=== PATIENT | male | born 1995 | race Caucasian/White ===

== ENCOUNTER 2017-12-07 15:54 | Emergency (ER) | payer OTHER ==
[~2017-12-07] VITALS: Ht 167.6 cm; Wt 63.5 kg
[2017-12-07 15:57] VITALS: BP 134/82
--- NOTE | 2017-12-07 18:12 | ED HAND/WRIST INJURY COMPLAINT ---
History of Present Illness General Chief Complaint: Laceration Procedure Stated Complaint: LAC TO L THUMB Source: patient Exam Limitations: no limitations Vital Signs & Intake/Output Vital Signs & Intake/Output Vital Signs Date Time Temp Pulse Resp B/P B/P Pulse O2 O2 Flow FiO2 Mean Ox Delivery Rate 12/07 1557 96.0 46 15 134/82 94 Room Air Room Air Allergies Coded Allergies: No Known Allergies (12/07/17) Reconcile Medications No Known Home Medications Triage Note: PT TO ED FOR C/C OF LAC TO LEFT THUMB S/P GETTING CUT WITH KNIFE. UNSURE OF LAST TETANUS SHOT. BLEEDING CONTROLLED IN TRIAGE. DRESSING PLACED AND ICE PACK PROVIDED. Triage Nurses Notes Reviewed? yes Occurred: just prior to arrival Duration: hour(s):, constant, continues in ED Timing: recent history Injury Environment: home Severity: moderate, severe Pain/Injury Location: Left: 1st finger. Method of Injury: laceration (1 CM) No Modifying Factors: none HPI: 22-year-old male comes into the emergency room with laceration to left thumb. Patient cut it at home. He denies any numbness or tingling. Some associated bleeding. He comes in for further evaluation. Sharp throbbing pain. (Walter Gonsalez) Past History Travel History Traveled to [place] past 21 day No Medical History Any Pertinent Medical History? 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 No (Walter Gonsalez) Review of Systems Review of Systems Constitutional: Reports: no symptoms. EENTM: Reports: no symptoms. Respiratory: Reports: no symptoms. Cardiovascular: Reports: no symptoms. GI: Reports: no symptoms. Genitourinary: Reports: no symptoms. Musculoskeletal: Reports: see HPI. Skin: Reports: see HPI. Neurological/Psychological: Reports: no symptoms. Hematologic/Endocrine: Reports: no symptoms. Immunologic/Allergic: Reports: no symptoms. All Other Systems: Reviewed and Negative (Walter Gonsalez) Physical Exam Physical Exam General Appearance: well developed/nourished, mild distress Head: atraumatic Eyes: Bilateral: normal appearance. Ears, Nose, Throat: normal ENT inspection, hearing grossly normal Neck: normal inspection Cardiovascular/Respiratory: no respiratory distress Back: normal inspection Hand Left: 1st finger (1 CM) Hand Right: normal inspection Neurologic/Tendon: normal sensation, normal motor functions, normal tendon functions, responds to pain, no evidence tendon injury, no pulse deficit Skin: intact, normal color, warm/dry (Walter Gonsalez) Progress Differential Diagnosis: contusion, fracture, sprain, TENDON LAC, FB Plan of Care: Current Medications Sig/Calvin Start time Last Medication Dose Stop Time Status Admin Tetanus/Diphtheria 0.5 ML ONCE ONE 12/07 1829 UNVr Toxoids Adsorbed 12/07 1830 (Decavac) (Walter Gonsalez) Departure Departure Disposition: HOME OR SELF CARE Condition: Stable Clinical Impression Primary Impression: Finger laceration Referrals: Patient Has No Primary Care Dr (PCP/Family) Additional Instructions: Watch for signs of infection such as redness, swelling discharge. return in 7 days for suture removal. return if any other concerns/worsening of symptoms. Please go over all results of today's visit with your primary care doctor. Contact your primary care doctor to let them know you were here in the emergency room. There may be nonspecific findings which may not be related to your visit today here in the emergency room but may require further evaluation and chronic monitoring by your primary care doctor. If you had a laceration today the chance of foreign body always remains. You should follow-up with your primary care doctor for recheck in 3-5 days for a wound check. If you had an x-ray done there is a chance that a fracture could have been missed on initial read and you should follow-up with your primary care doctor for repeat x-rays if symptoms persist. If your blood pressure was elevated here in the emergency room please have rechecked by [facility] primary care doctor within the next 48. If you were prescribed a narcotic here in the emergency room or any type of controlled substances you're not allowed to drive while taking this medication or operate any type of heavy machinery. Narcotics can make you feel lightheaded dizziness nausea and can cause constipation. You may need to pickle pumper a stool softener. Thank you for choosing [facility] emergency room. Please return to the emergency room immediately if you have any other concerns worsening of symptoms. Departure Forms: Customer Survey General Discharge Information Prescriptions: Current Visit Scripts No Known Home Medications (Walter Gonsalez) PA/MANUFACTURING STOREPERSON Co-Sign Statement Statement: ED Attending supervision documentation- [] I saw and evaluated the patient. I have also reviewed all the pertinent lab results and diagnostic results. I agree with the findings and the plan of care as documented in the PA's/MANUFACTURING STOREPERSON's documentation. [X] I have reviewed the ED Record and agree with the PA's/MANUFACTURING STOREPERSON's documentation. [] Additions or exceptions (if any) to the PAs/MANUFACTURING STOREPERSON's note and plan are summarized below: [] (Serge MCGHEE,Pau) Procedures Laceration/Wound Repair Progress: Laceration to left thumb, avulsion of distal tip, 1 cm in diameteR, 1% lidocaine , 4 mL, digital block, Betadine prep, irrigated with saline, 4. 0 nylon, 4 sutures placed, bacitracin, dry sterile dressing with finger splint placed, patient tolerated procedure well, (Walter Gonsalez)
== END 2017-12-07 19:17 ==
LOC: ERH 15:54
DX: S61.012A Laceration without foreign body of left thumb without damage to nail, initial encounter (principal); W26.0XXA Contact with knife, initial encounter; Y92.009 Unspecified place in unspecified non-institutional (private) residence as the place of occurrence of the external cause; Y93.9 Activity, unspecified
CPT/HCPCS: 90471; 90714